=== PATIENT | female | born 1985 | race Two or more races ===

== ENCOUNTER 2019-07-28 21:15 | Emergency (ER) | payer MEDICAID ==
--- NOTE | 2019-07-28 21:47 | ED Physician Chart ---
ED Chief Complaint/HPI - Patient Information Date Seen:: 07/28/19 Time Seen:: 23:35 Chief Complaint:: want treatment for her lupus History of Present Illness:: this patient was interview by me but was not examined. she stated that she wanted to leave and go to a hospital where she could get her lupus checked. she refused futher treatment. and signed out ama Vitals:: Vital Signs - 8 hr 07/28/19 21:15 Temp 98.1 F HR 90 RR 20 BP 124/84 O2 Sat % 100 Historian:: Patient Review:: Nurse's Note Reviewed ED Past Medical History - Past Medical History Obtainable: Yes Family Medical History - Family Member Mother History Unknown: Yes ED Physical Exam - Physical Examination General/Constitutional: Awake, Well-developed, well-nourished, Alert, No distress, GCS 15, Non-toxic appearing, Ambulatory Other Gen/Cons comments:: patient not examined Head: Atraumatic Eyes: Lids, conjuctiva normal, PERRL, EOMI Skin: Nl inspection, No rash, No skin lesions, No ecchymosis, Well hydrated, No lymphadenopathy ENMT: External ears, nose nl, Nasal exam nl, Lips, teeth, gums nl Neck: Nontender, Full ROM w/o pain, No JVD, No nuchal rigidity, No bruit, No mass, No stridor Respiratory: Nl effort/Exclusion, Clear to Auscultation, No Wheeze/Rhonchi/Rales Cardio Vascular: RRR, No murmur, gallop, rubs, NL S1 S2 GI: No tenderness/rebounding/guarding, No organomegaly, No hernia, Normal BS's, Nondistended, No mass/bruits, No McBurney tenderness : No CVA tenderness Extremities: No tenderness or effusion, Full ROM, normal strength in all extremities, No edema, Normal digits & nails Neuro/Psych: Alert/oriented, DTR's symmetric, Normal sensory exam, Normal motor strength, Judgement/insight normal, Mood normal, Normal gait, No focal deficits Misc: Normal back, No paraspinal tenderness ED Assessment - Assessment General Assessment: left ama ED Septic Shock - . Is Septic Shock (SBP<90, OR Lactate>4 mmol\L) present?: No - <6hrs of presentation: Vital Signs: Vital Signs - 8 hr 07/28/19 21:15 Temp 98.1 F HR 90 RR 20 BP 124/84 O2 Sat % 100 ED Reassessment (Disposition) - Diagnosis Diagnosis:: weakness - Patient Disposition Discharge/Transfer:: Against Medical Advice Condition at Disposition:: Stable
== END 2019-07-28 21:36 | disposition left against medical advice (07) ==
LOC: ER 21:15
DX: R53.1 Weakness (principal)
CPT/HCPCS: Z7502